=== PATIENT | female | born 1965 | race Two or more races ===

== ENCOUNTER 2023-04-04 17:14 | Inpatient (IN) | payer OTHER ==
[2023-04-04 18:23] VITALS: BMI 34.4
[2023-04-04] MEDS ORDERED: LOPERAMIDE HCL 2 MG CAPSULE PO PRN (20:48)
[2023-04-04] MEDS ORDERED: BENZONATATE 200 MG CAPSULE PO PRN (20:48)
[2023-04-04] MEDS ORDERED: AMMONIUM LACTATE 12% LOTION 225 GM BOTTLE TP PRN (20:48)
[2023-04-04] MEDS ORDERED: BENZOCAINE/MENTHOL (CHLORASEPTIC ) LOZENGE MM PRN (20:48)
[2023-04-04] MEDS ORDERED: MAG HYDROX/AL HYDROX/SIMETH 30 ML UNIT-DOSE CUP PO PRN (20:48)
[2023-04-04] MEDS ORDERED: MAGNESIUM HYDROX 2400MG/30ML ORAL SUSPENSION 30 ML CUP PO PRN (20:48)
[2023-04-04] MEDS ORDERED: COLLOIDAL OATMEAL 1 BAR EACH TP PRN (20:48)
[2023-04-04] MEDS ORDERED: guaiFENesin 600 MG TABLET.ER (FP) PO PRN (20:48)
[2023-04-04] MEDS ORDERED: POLYETHYLENE GLYCOL (HEALTHYLAX) 3350 17 GM PACKET PO PRN (20:48)
[2023-04-04] MEDS ORDERED: P-EPHED 60MG/TRIPROLIDI 2.5MG TABLET PO PRN (20:48)
[2023-04-04] MEDS ORDERED: TUBERCULIN PPD 5 TU/0.1ML VIAL ID ONE (22:01)
[2023-04-04] MEDS: THIAMINE HCL 100 MG TABLET (FP) PO SCH (22:08)
[2023-04-04] MEDS: cloNIDine HCL 0.1 MG TABLET PO PRN (22:08)
[2023-04-04] MEDS: MELATONIN 5 MG TABLETS PO SCH (22:08)
[2023-04-04] MEDS: ACETAMINOPHEN 325 MG TABLET (FP) PO PRN (22:09)
[2023-04-04] MEDS: LIDOCAINE PATCH REMOVAL MC SCH (22:16)
[2023-04-04] MEDS ORDERED: TUBERCULIN PPD 5 TU/0.1ML SYRINGE (IN PATIENT USE ONLY) ID ONE (23:00)
[2023-04-05] MEDS: hydrOXYzine PAMOATE 25 MG CAPSULE (FP) PO PRN (06:55)
[2023-04-05] MEDS: ACETAMINOPHEN 325 MG TABLET (FP) PO PRN ×3 (06:55→17:55)
[2023-04-05 10:09] LABS: POTASSIUM 3.6 mmol/L (3.5-5.1)
[2023-04-05 10:18] LABS: CALCIUM 8.7 mg/dL (8.5-10.1)
[2023-04-05 10:19] LABS: ALBUMIN 2.8 g/dl (3.4-5.0)
[2023-04-05 10:20] LABS: HEMOGLOBIN 11.4 GM/dL (10.7-15.3); MCHC 32.5 g/dl (32.0-36.0); MEAN CELL VOLUME 89.3 fl (80-96); MEAN PLT VOLUME 8.1 fl (7.5-11.1); PLATELET COUNT 228 10^3/uL (134-434); RBC 3.92 M/mm3 (3.60-5.2); RDW 17.5 % (11.6-15.6); WHITE BLOOD COUNT 2.8 K/mm3 (4.0-10.0)
[2023-04-05 10:21] LABS: CREATININE 1.4 mg/dL (0.55-1.3)
[2023-04-05 10:22] LABS: TOT PROT 7.3 g/dl (6.4-8.2)
[2023-04-05 10:25] LABS: BILIRUBIN,TOTAL 0.4 mg/dL (0.2-1)
[2023-04-05] MEDS: PRENATAL VITAMINS W/ FOLIC ACID TABLET (FP) PO SCH (10:33)
[2023-04-05] MEDS: LIDOCAINE 5% TOPICAL PATCH TP SCH ×2 (10:34→10:52)
[2023-04-05] MEDS: cloNIDine HCL 0.1 MG TABLET PO PRN (10:48)
[2023-04-05] MEDS: LIDOCAINE PATCH REMOVAL MC SCH (22:25)
[2023-04-05] MEDS: THIAMINE HCL 100 MG TABLET (FP) PO SCH (22:25)
[2023-04-05] MEDS: traZODone HCL 50 MG TABLET (FP) PO SCH (22:25)
[2023-04-05] MEDS: MELATONIN 5 MG TABLETS PO SCH (22:25)
[2023-04-06] MEDS: cloNIDine HCL 0.1 MG TABLET PO PRN (07:17)
[2023-04-06] MEDS: ALBUTEROL SO4 HFA INHALER IH PRN (07:33)
[2023-04-06 09:20] LABS: EPI CELLS 6 /uL (0-25.1); HYALINE CASTS 0 /uL (0-3.1); PH,URINE 6.5 (5.0-8.0); URINE APPEARANCE CLEAR; URINE BACTERIA 174 /uL (0-1359); URINE BILIRUBIN NEGATIVE (NEGATIVE); URINE COLOR YELLOW; URINE GLUCOSE (UA) NEGATIVE (NEGATIVE); URINE KETONE NEGATIVE (NEGATIVE); URINE LEUK ESTERASE 1+ (NEGATIVE); URINE NITRITE NEGATIVE (NEGATIVE); URINE PROTEIN 1+ (NEGATIVE); URINE RBC 5 /uL (0-23.9); URINE UROBILINOGEN 0.2 mg/dL (0.2-1.0); URINE WBC 143 /uL (0-25.8)
[2023-04-06] MEDS: ASPIRIN COATED 81 MG TABLET.EC PO SCH (09:51)
[2023-04-06] MEDS: amLODIPine BESYLATE 10 MG TABLET (FP) PO SCH (09:51)
[2023-04-06] MEDS: BICTEGRAV/EMTRICIT/TENOFOV (BIKTARVY) 50-200-25 MG TABLET PO SCH (09:51)
[2023-04-06] MEDS: PRENATAL VITAMINS W/ FOLIC ACID TABLET (FP) PO SCH (09:51)
[2023-04-06] MEDS: LIDOCAINE 5% TOPICAL PATCH TP SCH (09:51)
[2023-04-06] MEDS: hydrALAZINE HCL 25 MG TABLET (FP) PO SCH ×2 (09:51→21:32)
[2023-04-06] MEDS: ACETAMINOPHEN 325 MG TABLET (FP) PO PRN (15:01)
[2023-04-06] MEDS: ATORVASTATIN CA 20 MG TABLET (FP) PO SCH (21:32)
[2023-04-06] MEDS: MELATONIN 5 MG TABLETS PO SCH (21:32)
[2023-04-06] MEDS: traZODone HCL 50 MG TABLET (FP) PO SCH (21:32)
[2023-04-06] MEDS: THIAMINE HCL 100 MG TABLET (FP) PO SCH (21:34)
[2023-04-06] MEDS: LIDOCAINE PATCH REMOVAL MC SCH (21:43)
[2023-04-07] MEDS: PRENATAL VITAMINS W/ FOLIC ACID TABLET (FP) PO SCH (09:41)
[2023-04-07] MEDS: amLODIPine BESYLATE 10 MG TABLET (FP) PO SCH (09:41)
[2023-04-07] MEDS: BICTEGRAV/EMTRICIT/TENOFOV (BIKTARVY) 50-200-25 MG TABLET PO SCH (09:41)
[2023-04-07] MEDS: ASPIRIN COATED 81 MG TABLET.EC PO SCH (09:41)
[2023-04-07] MEDS: hydrALAZINE HCL 25 MG TABLET (FP) PO SCH ×2 (09:41→21:08)
[2023-04-07] MEDS: LIDOCAINE 5% TOPICAL PATCH TP SCH (09:42)
[2023-04-07] MEDS: ACETAMINOPHEN 325 MG TABLET (FP) PO PRN (17:03)
[2023-04-07] MEDS: LIDOCAINE PATCH REMOVAL MC SCH (21:07)
[2023-04-07] MEDS: ALBUTEROL SO4 HFA INHALER IH PRN (21:07)
[2023-04-07] MEDS: traZODone HCL 50 MG TABLET (FP) PO SCH (21:08)
[2023-04-07] MEDS: ATORVASTATIN CA 20 MG TABLET (FP) PO SCH (21:08)
[2023-04-07] MEDS: THIAMINE HCL 100 MG TABLET (FP) PO SCH (21:08)
[2023-04-07] MEDS: MELATONIN 5 MG TABLETS PO SCH (21:08)
[2023-04-08] MEDS: amLODIPine BESYLATE 10 MG TABLET (FP) PO SCH (10:04)
[2023-04-08] MEDS: BICTEGRAV/EMTRICIT/TENOFOV (BIKTARVY) 50-200-25 MG TABLET PO SCH (10:04)
[2023-04-08] MEDS: hydrALAZINE HCL 25 MG TABLET (FP) PO SCH ×2 (10:04→21:41)
[2023-04-08] MEDS: LIDOCAINE 5% TOPICAL PATCH TP SCH (10:04)
[2023-04-08] MEDS: ASPIRIN COATED 81 MG TABLET.EC PO SCH (10:04)
[2023-04-08] MEDS: PRENATAL VITAMINS W/ FOLIC ACID TABLET (FP) PO SCH (10:05)
[2023-04-08] MEDS: ACETAMINOPHEN 325 MG TABLET (FP) PO PRN ×4 (10:07→23:41)
[2023-04-08] MEDS: ALBUTEROL SO4 HFA INHALER IH PRN (21:40)
[2023-04-08] MEDS: traZODone HCL 50 MG TABLET (FP) PO SCH (21:41)
[2023-04-08] MEDS: ATORVASTATIN CA 20 MG TABLET (FP) PO SCH (21:41)
[2023-04-08] MEDS: THIAMINE HCL 100 MG TABLET (FP) PO SCH (21:41)
[2023-04-08] MEDS: hydrOXYzine PAMOATE 25 MG CAPSULE (FP) PO PRN (21:42)
[2023-04-08] MEDS: MELATONIN 5 MG TABLETS PO SCH (21:42)
[2023-04-08] MEDS: LIDOCAINE PATCH REMOVAL MC SCH (21:42)
[2023-04-08] MEDS: cloNIDine HCL 0.1 MG TABLET PO PRN (23:41)
[2023-04-08 23:42] VITALS: RESP 18
[2023-04-09] MEDS: ACETAMINOPHEN 325 MG TABLET (FP) PO PRN ×3 (06:37→15:57)
[2023-04-09] MEDS: cloNIDine HCL 0.1 MG TABLET PO PRN ×3 (06:39→23:38)
[2023-04-09] MEDS: ASPIRIN COATED 81 MG TABLET.EC PO SCH (09:47)
[2023-04-09] MEDS: PRENATAL VITAMINS W/ FOLIC ACID TABLET (FP) PO SCH (09:47)
[2023-04-09] MEDS: hydrALAZINE HCL 25 MG TABLET (FP) PO SCH ×2 (09:47→23:38)
[2023-04-09] MEDS: amLODIPine BESYLATE 10 MG TABLET (FP) PO SCH (09:47)
[2023-04-09] MEDS: BICTEGRAV/EMTRICIT/TENOFOV (BIKTARVY) 50-200-25 MG TABLET PO SCH (09:47)
[2023-04-09] MEDS: LIDOCAINE 5% TOPICAL PATCH TP SCH (09:48)
[2023-04-09] MEDS: BENZOCAINE 20 % GEL TUBE MM PRN ×2 (12:59→17:53)
[2023-04-09] MEDS: CLINDAMYCIN HCL 150 MG CAPSULE (FP) PO SCH ×2 (13:33→23:43)
[2023-04-09] MEDS ORDERED: AMOX TR/POT CLAV 875MG/125MG TABLETS (FP) PO SCH (17:30)
[2023-04-09] MEDS: ATORVASTATIN CA 20 MG TABLET (FP) PO SCH (23:38)
[2023-04-09] MEDS: traZODone HCL 50 MG TABLET (FP) PO SCH (23:42)
[2023-04-09] MEDS: LIDOCAINE PATCH REMOVAL MC SCH (23:44)
[2023-04-09] MEDS: MELATONIN 5 MG TABLETS PO SCH (23:45)
[2023-04-09] MEDS: THIAMINE HCL 100 MG TABLET (FP) PO SCH (23:45)
[2023-04-10] MEDS ORDERED: CLINDAMYCIN HCL 150 MG CAPSULE (FP) PO SCH (06:00)
[2023-04-10 07:13] VITALS: BP 138/77; PULSE 92; TEMP 96.4
[2023-04-10] MEDS: PRENATAL VITAMINS W/ FOLIC ACID TABLET (FP) PO SCH (09:22)
[2023-04-10] MEDS: amLODIPine BESYLATE 10 MG TABLET (FP) PO SCH (09:25)
[2023-04-10] MEDS: LIDOCAINE 5% TOPICAL PATCH TP SCH (09:25)
[2023-04-10] MEDS: hydrALAZINE HCL 25 MG TABLET (FP) PO SCH (09:25)
[2023-04-10] MEDS: BICTEGRAV/EMTRICIT/TENOFOV (BIKTARVY) 50-200-25 MG TABLET PO SCH (09:25)
[2023-04-10] MEDS: ASPIRIN COATED 81 MG TABLET.EC PO SCH (09:25)
[2023-04-10] MEDS: hydrOXYzine PAMOATE 25 MG CAPSULE (FP) PO PRN (09:26)
[2023-04-10] MEDS: ACETAMINOPHEN 325 MG TABLET (FP) PO PRN (09:28)
[2023-04-10 12:07] LABS: POTASSIUM 4.9 mmol/L (3.5-5.1)
[2023-04-10 12:13] LABS: BLOOD UREA NITROGEN 35.6 mg/dL (7-18)
[2023-04-10 12:16] LABS: CREATININE 1.6 mg/dL (0.55-1.3)
[2023-04-10 12:17] LABS: BILIRUBIN,TOTAL 0.8 mg/dL (0.2-1)
[2023-04-10 12:18] LABS: TOT PROT 9.2 g/dl (6.4-8.2)
[2023-04-10 12:19] LABS: ALBUMIN 3.5 g/dl (3.4-5.0)
== END 2023-04-10 12:15 | disposition home or self-care (01) | DRG 772 ==
LOC: YASAS 17:14 → Y5N 21:23
PROVIDERS: ADMIT Allergy & Immunology; ATTEND Psychiatry & Neurology Pain Medicine
PROC: HZ42ZZZ Group Counseling for Substance Abuse Treatment, Cognitive-Behavioral (ICD-10-PCS; principal; 2023-04-04)
DX: F10.20 Alcohol dependence, uncomplicated (principal); F14.20 Cocaine dependence, uncomplicated; F32.A Depression, unspecified; Z21 Asymptomatic human immunodeficiency virus [HIV] infection status; G47.00 Insomnia, unspecified; I10 Essential (primary) hypertension; E78.5 Hyperlipidemia, unspecified; J44.9 Chronic obstructive pulmonary disease, unspecified; K21.9 Gastro-esophageal reflux disease without esophagitis; K08.89 Other specified disorders of teeth and supporting structures; K02.9 Dental caries, unspecified; I69.831 Monoplegia of upper limb following other cerebrovascular disease affecting right dominant side; Z88.1 Allergy status to other antibiotic agents
CPT/HCPCS: 36415; 80053; 81003; 85027; 86780; 87635; 87811; 93005; 93010